=== PATIENT | male | born 1955 ===

== ENCOUNTER → 2025-04-06 10:23 | Outpatient (CLI) | payer MEDICARE, SELFPAY ==
--- NOTE | 2025-04-06 10:27 | DI.CT.S_ITS ---
PROCEDURE: CT CHEST WO CON INDICATIONS: hx of pulmonary fibrosis and COPD, previously abnormal CT fu TECHNIQUE: Noncontrast 5 mm thick sections acquired from the pulmonary apices to the posterior costophrenic angles. 1 mm lung window, 5 mm thick coronal and sagittal and 7 mm axial MIP reformats were then acquired. For radiation dose reduction, the following was used: automated exposure control, adjustment of mA and/or kV according to patient size. COMPARISON: Outside Facility, CT, CT CHEST WO CON, 08/22/2024, 8:52. FINDINGS: Image quality: Diagnostic. Lower Neck: No enlarged lymph nodes. Thyroid: No thyroid nodules which require sonographic follow up, per consensus guidelines. Axillae: No enlarged lymph nodes. Chest Wall: Unremarkable. Bones: Unremarkable. Lungs and Pleura: No pneumothorax or pleural effusions. Confluent, destructive, centrilobular and paraseptal emphysema with bullous emphysematous changes in the bilateral upper lobes. There is honeycombing the bilateral lower lobes, right middle lobe, and inferior lingula. Areas of traction bronchiectasis in the bilateral lower lobes. Similar appearance of a 9 mm solid pulmonary nodule in the medial basilar segment of the right middle lobe (3/217) previously 10 mm Heart: Heart size is normal. No pericardial effusion. Moderate calcifications of the right circumflex and left anterior descending coronary arteries. Thoracic Vessels: The aorta and pulmonary arteries demonstrate normal size. Mediastinum and Vanesa: No enlarged lymph nodes. Esophagus: No wall thickening. No hiatal hernia. Upper Abdomen: Visualized upper abdomen solid organs and bowel loops appear normal. IMPRESSION: 1. Similar extent of the findings in a pattern consistent with usual interstitial pneumonia when compared to 08/22/2024. 2. Stable appearance of a 9 mm solid pulmonary nodule in the medial basilar segment of the right middle lobe. Consider follow-up in 12 months. 3. Confluent , destructive, apical predominant bullous emphysema. 4. Moderate to severe coronary artery calcifications. Correlate with risk factors, symptoms, and consider cardiology referral versus lifestyle modifications. Dictated by: Davin Morales M.D. on 04/11/2025 at 16:49 Approved by: Davin Morales M.D. on 04/11/2025 at 16:58
== END ==
PROVIDERS: PCP Nurse Practitioner; Referring Provider Student in an Organized Health Care Education/Training Program; Visit Provider Student in an Organized Health Care Education/Training Program
DX: J84.10 Pulmonary fibrosis, unspecified (principal); J43.9 Emphysema, unspecified; R91.1 Solitary pulmonary nodule; I25.10 Atherosclerotic heart disease of native coronary artery without angina pectoris; J43.2 Centrilobular emphysema
CPT/HCPCS: 71250